=== PATIENT | male | born 1965 | race Caucasian/White ===

== ENCOUNTER 2017-02-23 05:43 | Inpatient (IN) | payer MEDICARE, MEDICAID ==
[~2017-02-23] VITALS: Ht 182.9 cm; Wt 108.3 kg
[2017-02-23] MEDS ORDERED: SODIUM CHLORIDE 0.9% 1,000 ML IV ONE ×2 (05:50→07:12)
[2017-02-23] MEDS ORDERED: HYDROmorphone 1 MG/ML, 1ML ONE ×4 (05:55→10:25)
[2017-02-23] MEDS ORDERED: ONDANSETRON 2MG/ML, 2ML ONE (05:56)
[2017-02-23] MEDS ORDERED: FAMOTIDINE 20 MG/2 ML ONE (05:56)
[2017-02-23] MEDS ORDERED: ONDANSETRON 2MG/ML, 2ML IVPush ONE (06:00)
[2017-02-23] MEDS ORDERED: SODIUM CHLORIDE 0.9% 1,000ML IVBOLUS ONE (06:00)
[2017-02-23] MEDS ORDERED: FAMOTIDINE 20 MG/2 ML IVP ONE (06:00)
[2017-02-23] MEDS ORDERED: SODIUM CHLORIDE FLUSH 10ML SYR IVF ONE (06:00)
[2017-02-23] MEDS: HYDROmorphone 1 MG/ML, 1ML IVPush PRN ×4 (06:02→09:04)
[2017-02-23] MEDS ORDERED: VENL75CA PO (06:17)
[2017-02-23] MEDS ORDERED: OLME20TA PO (06:17)
[2017-02-23] MEDS ORDERED: GABA300C10 PO (06:17)
[2017-02-23] MEDS ORDERED: MORP30TA81 PO (06:17)
[2017-02-23] MEDS ORDERED: HYDR-883 PO (06:17)
[2017-02-23] MEDS ORDERED: MIRT15TA4 PO (06:17)
[2017-02-23] MEDS ORDERED: BUSP10TA PO (06:17)
[2017-02-23 06:34] LABS: ASPARTATE AMINO TRANSFERASE 374 U/L (15-37)
[2017-02-23 06:55] LABS: BLOOD UREA NITROGEN 17 mg/dL (7-18)
[2017-02-23 06:58] LABS: IS PT STATUS REG ER OR PRE ER? YES
[2017-02-23] MEDS ORDERED: SODIUM CHLORIDE FLUSH 10ML SYR IVF PRN (07:30)
[2017-02-23] MEDS ORDERED: ONDANSETRON 2MG/ML, 2ML IVPush PRN (07:30)
[2017-02-23] MEDS: SODIUM CHLORIDE 0.9% 1,000 ML IV SCH ×3 (08:21→20:31)
[2017-02-23] MEDS ORDERED: THIAMINE 200 MG in SODIUM CHLORIDE 0.9% 50 ML IV ONE (08:30)
[2017-02-23] MEDS ORDERED: LABETALOL 5MG/ML, 20ML IV PRN (08:30)
[2017-02-23] MEDS ORDERED: ONDANSETRON 2MG/ML, 2ML IVP PRN (08:30)
[2017-02-23] MEDS ORDERED: HYDROmorphone 2 MG/ML, 1ML IVPush PRN (08:30)
[2017-02-23] MEDS ORDERED: LORazepam 2 MG/ML, 1ML IV PRN ×2 (08:30)
[2017-02-23 08:54] VITALS: BP 154/87
[2017-02-23] MEDS ORDERED: TEMPLATE NON-FORMULARY MED. (Olmesartan Medoxomil** (Benicar**) 20 MG) PO SCH (09:00)
[2017-02-23] MEDS ORDERED: VENLAFAXINE 75 MG CAP ER PO SCH (09:00)
[2017-02-23] MEDS: LORazepam 2 MG/ML, 1ML IV PRN ×2 (10:37→20:31)
[2017-02-23] MEDS: GABAPENTIN 300 MG CAPSULE PO SCH ×2 (10:41→16:00)
[2017-02-23] MEDS: BUSPIRONE 10 MG TABLET PO SCH ×3 (10:41→20:31)
[2017-02-23] MEDS: VALSARTAN 160 MG TABLET PO SCH (10:42)
[2017-02-23] MEDS: CHLORDIAZEPOXIDE 10 MG CAPSULE PO SCH ×3 (10:46→20:31)
[2017-02-23] MEDS ORDERED: MIRT45TA4 PO (11:40)
[2017-02-23] MEDS ORDERED: LORA0.5T PO (11:40)
[2017-02-23] MEDS ORDERED: HYDR-3307 PO (11:40)
[2017-02-23] MEDS ORDERED: BUSP30TA PO (11:40)
[2017-02-23] MEDS ORDERED: VENL150C PO (11:40)
[2017-02-23] MEDS ORDERED: OLME1TAB PO (11:40)
[2017-02-23] MEDS ORDERED: GABA800T2 PO (11:40)
[2017-02-23] MEDS: FOLIC ACID 1 MG, THIAMINE 100 MG, MVI ADULT 10 ML in DEXTROSE 5% 1,000 ML IV SCH (12:05)
[2017-02-23] MEDS: LACTULOSE 20 GM/30 ML UDC PO SCH ×3 (12:08→20:31)
[2017-02-23] MEDS: ENOXAPARIN 40 MG/0.4 ML SQ SCH (12:12)
[2017-02-23] MEDS: NICOTINE 21 MG/24 HR PATCH.TD24 TD SCH (12:13)
[2017-02-23 13:04] VITALS: BP 162/97
[2017-02-23] MEDS: HYDROmorphone 2 MG/ML, 1ML IVPush PRN ×4 (13:34→20:32)
[2017-02-23] MEDS: ENALAPRILAT 1.25 MG/ML, 2ML IVPush PRN (15:32)
[2017-02-23 20:13] VITALS: BP 161/98
[2017-02-23] MEDS: GABAPENTIN 400 MG CAPSULE PO SCH (20:31)
[2017-02-24 02:23] VITALS: BP 155/101
[2017-02-24] MEDS: LORazepam 2 MG/ML, 1ML IV PRN ×5 (02:38→21:30)
[2017-02-24] MEDS: SODIUM CHLORIDE 0.9% 1,000 ML IV SCH ×3 (02:38→23:48)
[2017-02-24] MEDS: HYDROmorphone 2 MG/ML, 1ML IVPush PRN ×8 (02:39→21:30)
[2017-02-24 04:36] LABS: ASPARTATE AMINO TRANSFERASE 99 U/L (15-37); BLOOD UREA NITROGEN 15 mg/dL (7-18)
[2017-02-24 07:39] VITALS: BP 159/94
[2017-02-24] MEDS ORDERED: HYDROCHLOROTHIAZIDE 12.5 MG CAPSULE PO SCH (09:00)
[2017-02-24] MEDS: BUSPIRONE 10 MG TABLET PO SCH ×2 (09:00→21:35)
[2017-02-24] MEDS ORDERED: VENLAFAXINE 75 MG CAP ER PO SCH (09:00)
[2017-02-24] MEDS: NICOTINE 21 MG/24 HR PATCH.TD24 TD SCH (09:24)
[2017-02-24] MEDS: VALSARTAN 160 MG TABLET PO SCH (09:48)
[2017-02-24] MEDS: LOSARTAN 50MG TABLET PO SCH (09:48)
[2017-02-24] MEDS: LACTULOSE 20 GM/30 ML UDC PO SCH ×3 (09:49→21:31)
[2017-02-24] MEDS: ENOXAPARIN 40 MG/0.4 ML SQ SCH (09:50)
[2017-02-24] MEDS: GABAPENTIN 400 MG CAPSULE PO SCH ×3 (09:50→21:31)
[2017-02-24] MEDS ORDERED: PHARMACY INSTRUCTION MC PRN (10:00)
[2017-02-24] MEDS: FOLIC ACID 1 MG, THIAMINE 100 MG, MVI ADULT 10 ML in DEXTROSE 5% 1,000 ML IV SCH (10:45)
[2017-02-24] MEDS: CHLORDIAZEPOXIDE 10 MG CAPSULE PO SCH ×3 (13:10→21:32)
[2017-02-24 14:47] VITALS: BP 133/83
[2017-02-24 19:06] VITALS: BP 137/82
[2017-02-25] MEDS ORDERED: LORazepam 1MG TABLET ONE (00:43)
[2017-02-25 00:46] VITALS: BP 146/80
[2017-02-25] MEDS: HYDROmorphone 2 MG/ML, 1ML IVPush PRN ×9 (01:03→22:05)
[2017-02-25] MEDS: LORazepam 2 MG/ML, 1ML IV PRN ×3 (01:04→21:18)
[2017-02-25 04:54] LABS: ASPARTATE AMINO TRANSFERASE 69 U/L (15-37); BLOOD UREA NITROGEN 13 mg/dL (7-18)
[2017-02-25] MEDS: SODIUM CHLORIDE 0.9% 1,000 ML IV SCH ×3 (06:20→18:00)
[2017-02-25 07:57] VITALS: BP 124/73
[2017-02-25] MEDS: NICOTINE 21 MG/24 HR PATCH.TD24 TD SCH (09:30)
[2017-02-25] MEDS: LOSARTAN 50MG TABLET PO SCH (09:39)
[2017-02-25] MEDS: VALSARTAN 160 MG TABLET PO SCH (09:39)
[2017-02-25] MEDS: BUSPIRONE 10 MG TABLET PO SCH ×2 (09:39→21:18)
[2017-02-25] MEDS: LACTULOSE 20 GM/30 ML UDC PO SCH ×3 (09:40→21:18)
[2017-02-25] MEDS: ENOXAPARIN 40 MG/0.4 ML SQ SCH (09:40)
[2017-02-25] MEDS: VENLAFAXINE 75 MG CAP ER PO SCH (09:40)
[2017-02-25] MEDS: GABAPENTIN 400 MG CAPSULE PO SCH (09:40)
[2017-02-25] MEDS: FOLIC ACID 1 MG, THIAMINE 100 MG, MVI ADULT 10 ML in DEXTROSE 5% 1,000 ML IV SCH (12:31)
[2017-02-25 12:42] VITALS: BP 139/73
[2017-02-25 18:53] VITALS: BP 129/78
[2017-02-26] MEDS ORDERED: HYDROmorphone 1 MG/ML, 1ML ONE (00:03)
[2017-02-26] MEDS: HYDROmorphone 2 MG/ML, 1ML IVPush PRN ×9 (00:08→20:50)
[2017-02-26 01:06] VITALS: BP 147/79
[2017-02-26] MEDS: SODIUM CHLORIDE 0.9% 1,000 ML IV SCH ×3 (03:49→17:44)
[2017-02-26 05:10] LABS: ASPARTATE AMINO TRANSFERASE 67 U/L (15-37); BLOOD UREA NITROGEN 11 mg/dL (7-18)
[2017-02-26 07:13] VITALS: BP 138/80
[2017-02-26] MEDS: NICOTINE 21 MG/24 HR PATCH.TD24 TD SCH (09:30)
[2017-02-26] MEDS: BUSPIRONE 10 MG TABLET PO SCH ×2 (09:44→20:50)
[2017-02-26] MEDS: VENLAFAXINE 75 MG CAP ER PO SCH (09:45)
[2017-02-26] MEDS: VALSARTAN 160 MG TABLET PO SCH (09:45)
[2017-02-26] MEDS: LACTULOSE 20 GM/30 ML UDC PO SCH ×3 (09:45→20:50)
[2017-02-26] MEDS: LOSARTAN 50MG TABLET PO SCH (09:45)
[2017-02-26] MEDS: ENOXAPARIN 40 MG/0.4 ML SQ SCH (09:46)
[2017-02-26 13:28] VITALS: BP 154/83
[2017-02-26] MEDS: LORazepam 2 MG/ML, 1ML IV PRN (17:15)
[2017-02-26 19:41] VITALS: BP 149/83
[2017-02-27 04:30] VITALS: BP 159/81
[2017-02-27] MEDS: HYDROmorphone 2 MG/ML, 1ML IVPush PRN ×9 (04:30→23:04)
[2017-02-27 05:05] LABS: BLOOD UREA NITROGEN 9 mg/dL (7-18)
[2017-02-27 05:09] LABS: ASPARTATE AMINO TRANSFERASE 85 U/L (15-37)
[2017-02-27 07:30] VITALS: BP 159/84
[2017-02-27] MEDS: NICOTINE 21 MG/24 HR PATCH.TD24 TD SCH (09:30)
[2017-02-27] MEDS: VENLAFAXINE 75 MG CAP ER PO SCH (10:00)
[2017-02-27] MEDS: BUSPIRONE 10 MG TABLET PO SCH ×2 (10:00→20:49)
[2017-02-27] MEDS: LOSARTAN 50MG TABLET PO SCH (10:00)
[2017-02-27] MEDS: ENOXAPARIN 40 MG/0.4 ML SQ SCH (10:01)
[2017-02-27] MEDS: LACTULOSE 20 GM/30 ML UDC PO SCH ×3 (10:01→20:49)
[2017-02-27] MEDS: VALSARTAN 160 MG TABLET PO SCH (10:03)
[2017-02-27] MEDS: SODIUM CHLORIDE 0.9% 1,000 ML IV SCH ×4 (10:07→20:49)
[2017-02-27] MEDS: LORazepam 2 MG/ML, 1ML IV PRN (13:48)
[2017-02-27 14:11] VITALS: BP 152/80
[2017-02-27 14:41] VITALS: BP 160/80
[2017-02-27 20:36] VITALS: BP 155/81
[2017-02-28] MEDS: HYDROmorphone 2 MG/ML, 1ML IVPush PRN ×9 (01:04→21:27)
[2017-02-28 01:48] VITALS: BP 163/77
[2017-02-28] MEDS: SODIUM CHLORIDE 0.9% 1,000 ML IV SCH ×3 (03:32→21:26)
[2017-02-28 07:01] VITALS: BP 156/75
[2017-02-28] MEDS: NICOTINE 21 MG/24 HR PATCH.TD24 TD SCH (07:46)
[2017-02-28] MEDS: VALSARTAN 160 MG TABLET PO SCH (07:49)
[2017-02-28] MEDS: VENLAFAXINE 75 MG CAP ER PO SCH (07:50)
[2017-02-28] MEDS: BUSPIRONE 10 MG TABLET PO SCH ×2 (07:50→21:26)
[2017-02-28] MEDS: LOSARTAN 50MG TABLET PO SCH (07:50)
[2017-02-28] MEDS: LACTULOSE 20 GM/30 ML UDC PO SCH ×3 (07:50→21:26)
[2017-02-28 10:36] LABS: BLOOD UREA NITROGEN 7 mg/dL (7-18)
[2017-02-28 10:39] LABS: ASPARTATE AMINO TRANSFERASE 37 U/L (15-37)
[2017-02-28] MEDS ORDERED: HYDROmorphone 2 MG/ML, 1ML ONE (10:42)
[2017-02-28] MEDS: ENOXAPARIN 40 MG/0.4 ML SQ SCH (10:53)
[2017-02-28] MEDS ORDERED: POTASSIUM CHLORIDE 20 MEQ in SODIUM CHLORIDE 0.9% 250 ML IV ONE (11:00)
[2017-02-28 13:36] VITALS: BP 160/89
[2017-02-28 19:08] VITALS: BP 170/72
[2017-02-28] MEDS: LORazepam 2 MG/ML, 1ML IV PRN (19:37)
[2017-03-01] MEDS: HYDROmorphone 2 MG/ML, 1ML IVPush PRN ×7 (00:58→23:09)
[2017-03-01 01:17] VITALS: BP 164/79
[2017-03-01] MEDS: SODIUM CHLORIDE 0.9% 1,000 ML IV SCH ×2 (04:02→10:40)
[2017-03-01 05:22] LABS: BLOOD UREA NITROGEN 4 mg/dL (7-18)
[2017-03-01 07:13] VITALS: BP 164/84
[2017-03-01] MEDS: NICOTINE 21 MG/24 HR PATCH.TD24 TD SCH (09:30)
[2017-03-01] MEDS: BUSPIRONE 10 MG TABLET PO SCH ×2 (10:46→21:13)
[2017-03-01] MEDS: LOSARTAN 50MG TABLET PO SCH (10:46)
[2017-03-01] MEDS: POTASSIUM CHLORIDE 20 MEQ TAB.ER.PRT PO SCH ×2 (10:46→19:11)
[2017-03-01] MEDS: VALSARTAN 160 MG TABLET PO SCH (10:47)
[2017-03-01] MEDS: VENLAFAXINE 75 MG CAP ER PO SCH (10:48)
[2017-03-01] MEDS: LACTULOSE 20 GM/30 ML UDC PO SCH ×3 (10:48→20:16)
[2017-03-01] MEDS: ENOXAPARIN 40 MG/0.4 ML SQ SCH (10:49)
[2017-03-01] MEDS ORDERED: MAGNESIUM SULFATE PMX 4GM/100M 100 ML IV ONE (14:00)
[2017-03-01 14:49] VITALS: BP 170/90
[2017-03-01 20:36] VITALS: BP 171/89
[2017-03-01] MEDS: ENALAPRILAT 1.25 MG/ML, 2ML IVPush PRN (23:09)
[2017-03-02 01:22] VITALS: BP 171/92
[2017-03-02] MEDS: HYDROmorphone 2 MG/ML, 1ML IVPush PRN ×6 (03:09→23:29)
[2017-03-02] MEDS: ENALAPRILAT 1.25 MG/ML, 2ML IVPush PRN ×3 (03:09→23:46)
[2017-03-02 05:38] LABS: BLOOD UREA NITROGEN 5 mg/dL (7-18)
[2017-03-02 08:17] VITALS: BP 172/86
[2017-03-02] MEDS: LOSARTAN 50MG TABLET PO SCH (09:02)
[2017-03-02] MEDS: BUSPIRONE 10 MG TABLET PO SCH ×2 (09:02→21:32)
[2017-03-02] MEDS: VALSARTAN 80 MG TABLET PO SCH (09:02)
[2017-03-02] MEDS: THIAMINE 100MG TABLET PO SCH (09:03)
[2017-03-02] MEDS: LACTULOSE 20 GM/30 ML UDC PO SCH ×3 (09:03→21:32)
[2017-03-02] MEDS: FOLIC ACID 1 MG TABLET PO SCH (09:03)
[2017-03-02] MEDS: MULTIVITAMIN 1 TABLET PO SCH (09:03)
[2017-03-02] MEDS: VENLAFAXINE 75 MG CAP ER PO SCH (09:03)
[2017-03-02] MEDS: NICOTINE 21 MG/24 HR PATCH.TD24 TD SCH (09:04)
[2017-03-02] MEDS: ENOXAPARIN 40 MG/0.4 ML SQ SCH (09:04)
[2017-03-02] MEDS: POTASSIUM CHLORIDE 20 MEQ TAB.ER.PRT PO SCH ×2 (09:11→16:37)
[2017-03-02] MEDS: OXYcodone IR 5MG TABLET PO PRN ×2 (13:33→17:36)
[2017-03-02 14:36] VITALS: BP 177/90
[2017-03-02 17:38] VITALS: BP 168/84
[2017-03-02 19:08] VITALS: BP 164/91
[2017-03-02] MEDS: LABETALOL 20 MG/4 ML IV PRN (21:39)
[2017-03-02 23:00] VITALS: BP 176/89
[2017-03-03] MEDS: OXYcodone IR 5MG TABLET PO PRN ×2 (01:30→16:51)
[2017-03-03 01:36] VITALS: BP 177/90
[2017-03-03 03:29] VITALS: BP 168/91
[2017-03-03] MEDS: HYDROmorphone 2 MG/ML, 1ML IVPush PRN ×4 (04:29→21:05)
[2017-03-03 05:27] LABS: BLOOD UREA NITROGEN 7 mg/dL (7-18)
[2017-03-03 05:31] LABS: ASPARTATE AMINO TRANSFERASE 20 U/L (15-37)
[2017-03-03 07:14] VITALS: BP 178/84
[2017-03-03] MEDS: VALSARTAN 80 MG TABLET PO SCH (08:08)
[2017-03-03] MEDS: LACTULOSE 20 GM/30 ML UDC PO SCH ×3 (08:08→22:13)
[2017-03-03] MEDS: BUSPIRONE 10 MG TABLET PO SCH ×2 (08:09→22:14)
[2017-03-03] MEDS: FOLIC ACID 1 MG TABLET PO SCH (08:09)
[2017-03-03] MEDS: THIAMINE 100MG TABLET PO SCH (08:09)
[2017-03-03] MEDS: MULTIVITAMIN 1 TABLET PO SCH (08:09)
[2017-03-03] MEDS: LOSARTAN 50MG TABLET PO SCH (08:09)
[2017-03-03] MEDS: VENLAFAXINE 75 MG CAP ER PO SCH (08:10)
[2017-03-03] MEDS: NICOTINE 21 MG/24 HR PATCH.TD24 TD SCH ×2 (09:11→09:12)
[2017-03-03] MEDS: ENOXAPARIN 40 MG/0.4 ML SQ SCH (09:12)
[2017-03-03 13:09] VITALS: BP 179/89
[2017-03-03] MEDS ORDERED: KETOROLAC 30 MG/1 ML IVPush PRN (13:30)
[2017-03-03 16:50] VITALS: BP 167/85
[2017-03-03 19:27] VITALS: BP 177/99
[2017-03-04 00:44] VITALS: BP 149/87
[2017-03-04] MEDS: HYDROmorphone 2 MG/ML, 1ML IVPush PRN ×2 (03:14→09:08)
[2017-03-04 06:44] VITALS: BP 156/75
[2017-03-04] MEDS: LACTULOSE 20 GM/30 ML UDC PO SCH ×3 (07:57→20:59)
[2017-03-04] MEDS: BUSPIRONE 10 MG TABLET PO SCH ×2 (07:58→20:56)
[2017-03-04] MEDS: VALSARTAN 320 MG TABLET PO SCH (07:58)
[2017-03-04] MEDS: LOSARTAN 50MG TABLET PO SCH (07:58)
[2017-03-04] MEDS: THIAMINE 100MG TABLET PO SCH (07:59)
[2017-03-04] MEDS: MULTIVITAMIN 1 TABLET PO SCH (07:59)
[2017-03-04] MEDS: VENLAFAXINE 75 MG CAP ER PO SCH (07:59)
[2017-03-04] MEDS: ENOXAPARIN 40 MG/0.4 ML SQ SCH (07:59)
[2017-03-04] MEDS: FOLIC ACID 1 MG TABLET PO SCH (07:59)
[2017-03-04] MEDS: NICOTINE 21 MG/24 HR PATCH.TD24 TD SCH (08:02)
[2017-03-04] MEDS: HYDROcodone/APAP 10/325 MG TABLET PO PRN ×3 (12:17→20:58)
[2017-03-04 12:44] VITALS: BP 171/87
[2017-03-04] MEDS: GEMFIBROZIL 600 MG TABLET PO SCH (17:46)
[2017-03-04 19:17] VITALS: BP 189/89
[2017-03-04] MEDS: ENALAPRILAT 1.25 MG/ML, 2ML IVPush PRN (20:58)
[2017-03-04 23:00] VITALS: BP 173/89
[2017-03-04] MEDS: LABETALOL 20 MG/4 ML IV PRN (23:25)
[2017-03-05] MEDS: HYDROcodone/APAP 10/325 MG TABLET PO PRN ×4 (01:05→15:58)
[2017-03-05 03:00] VITALS: BP 168/87
[2017-03-05 06:52] VITALS: BP_SYST 168; BP_SYST 179; BP_DIAS 86; BP_DIAS 87
[2017-03-05] MEDS: GEMFIBROZIL 600 MG TABLET PO SCH ×2 (07:39→08:53)
[2017-03-05] MEDS: LACTULOSE 20 GM/30 ML UDC PO SCH ×2 (08:46→16:00)
[2017-03-05] MEDS: ENOXAPARIN 40 MG/0.4 ML SQ SCH (08:46)
[2017-03-05] MEDS: VENLAFAXINE 75 MG CAP ER PO SCH (08:47)
[2017-03-05] MEDS: MULTIVITAMIN 1 TABLET PO SCH (08:47)
[2017-03-05] MEDS: FOLIC ACID 1 MG TABLET PO SCH (08:47)
[2017-03-05] MEDS: BUSPIRONE 10 MG TABLET PO SCH (08:47)
[2017-03-05] MEDS: THIAMINE 100MG TABLET PO SCH (08:47)
[2017-03-05] MEDS: VALSARTAN 320 MG TABLET PO SCH (08:48)
[2017-03-05] MEDS ORDERED: AMLODIPINE 5 MG TABLET PO SCH (09:00)
[2017-03-05] MEDS: NICOTINE 21 MG/24 HR PATCH.TD24 TD SCH (09:30)
[2017-03-05 12:32] VITALS: BP 166/84
[2017-03-05 13:37] LABS: BLOOD UREA NITROGEN 8 mg/dL (7-18)
[2017-03-05] MEDS ORDERED: MULT1TAB60 PO (14:52)
[2017-03-05] MEDS ORDERED: Thiamine Hcl PO (14:52)
[2017-03-05] MEDS ORDERED: GEMF600T3 PO (14:52)
[2017-03-05] MEDS ORDERED: FOLI-17 PO (14:52)
[2017-03-05] MEDS ORDERED: VENL75CA6 PO (14:52)
[2017-03-05] MEDS ORDERED: AMLO5TAB2 PO (14:52)
[2017-03-05] MEDS ORDERED: OLME1TAB PO (14:52)
== END 2017-03-05 19:00 | disposition home or self-care (01) | DRG 432 ==
LOC: ED 07:11 → EDIP 07:12 → ED 07:26 → ICU 08:45 → 4EST 02-27 14:34
PROVIDERS: ADMIT Hospitalist; ATTEND Internal Medicine
DX: K70.10 Alcoholic hepatitis without ascites (principal); K85.20 Alcohol induced acute pancreatitis without necrosis or infection; F10.239 Alcohol dependence with withdrawal, unspecified; K56.7 Ileus, unspecified; F32.9 Major depressive disorder, single episode, unspecified; G89.29 Other chronic pain; I10 Essential (primary) hypertension; D64.9 Anemia, unspecified; E78.1 Pure hyperglyceridemia; E87.6 Hypokalemia; F17.200 Nicotine dependence, unspecified, uncomplicated; F19.94 Other psychoactive substance use, unspecified with psychoactive substance-induced mood disorder; F41.1 Generalized anxiety disorder; N32.0 Bladder-neck obstruction; Z79.891 Long term (current) use of opiate analgesic; Z80.0 Family history of malignant neoplasm of digestive organs; Z90.49 Acquired absence of other specified parts of digestive tract; Z88.0 Allergy status to penicillin
CPT/HCPCS: 36415; 74022; 76700; 80048; 80053; 80061; 80307; 81003; 82140; 82150; 83690; 83735; 84100; 84478; 84484; 85025; 85610; 85730; 93005; 96361; 96374; 96375; 96376; J1170; J1650; J2405; J3411; J3480; J7070; J2060; J3475; J3490; J7030; J7050; S0028